=== PATIENT | male | born 1965 | race Caucasian/White ===

== ENCOUNTER 2025-01-19 22:05 | Emergency (ER) | payer BC ==
[~2025-01-19] VITALS: Ht 190.5 cm; Wt 99.8 kg
[2025-01-20 01:32] VITALS: BP 138/84; TEMP 98.3; O2SAT 98
== END 2025-01-20 01:34 | disposition home or self-care (01) ==
LOC: ER 22:14
DX: S50.312A Abrasion of left elbow, initial encounter (principal); R55 Syncope and collapse; V89.2XXA Person injured in unspecified motor-vehicle accident, traffic, initial encounter; Y93.89 Activity, other specified; Y92.410 Unspecified street and highway as the place of occurrence of the external cause; Y99.8 Other external cause status
CPT/HCPCS: 70450-TC